=== PATIENT | female | born 1970 | race African-American/Black ===

== ENCOUNTER 2017-05-07 11:35 | Emergency (ER) | payer SELFPAY ==
[2017-05-07] MEDS ORDERED: Ondansetron HCl/PF 4 MG/2 ML Vial ONE (12:06)
[2017-05-07] MEDS ORDERED: Pantoprazole 40 MG VIAL ONE (12:06)
[2017-05-07] MEDS ORDERED: Ketorolac Tromethamine 30 MG/ML VIAL ONE (12:06)
--- NOTE | 2017-05-07 12:15 | RAD ---
PORTABLE CHEST 1 VIEW: Date: 05/07/17 Time: 1213 hours HISTORY: Dizziness, nausea, vomiting, and right upper quadrant pain. FINDINGS: The heart size is normal. There is elevation of the right hemidiaphragm. No focal areas of consolida tion, pneumothorax, or pleural effusions are seen. IMPRESSION: No acute process. POS: [facility]
[2017-05-07 12:27] LABS: Bilirubin Small (Negative); Blood, Urine Large (Negative); Glucose, Urine (Dipstick) Negative (Negative); Ketone, Urine Negative (Negative); Nitrite Negative (Negative); Protein, Urine (Dipstick) 100 mg/dL (Neg-Trace)
[2017-05-07 12:39] LABS: #Basophils 0.1 thou/uL (0.0-0.2); #Eosinphils 0.1 thou/uL (0.0-0.7); #Lymphocytes 1.6 thou/uL (1.20-3.40); #Monocytes 0.6 thou/uL (0.11-0.59); #Neutrophils 4.1 thou/uL (1.40-6.50); %Basophils 1.8 % (0.0-1.0); %Eosinophils 1.6 % (0.0-10.0); %Lymphocytes 23.7 % (21.0-51.0); %Monocytes 9.8 % (0.0-10.0); Hematocrit 43.2 % (36.0-47.0); Mean Platelet Volume 6.8 fL (7.4-10.4); Red Blood Cell (RBC) Count 4.71 mill/uL (4.20-5.40); White Blood Cell (WBC) Count 6.5 thou/uL (4.8-10.8)
[2017-05-07 12:41] LABS: Bacteria/HPF 1+ HPF (None Seen); RBC/HPF GREATER THAN 50-TNTC HPF (0-3)
[2017-05-07 12:44] LABS: ALT (SGPT) 53 U/L (8-55); AST (SGOT) 85 U/L (5-34); Alkaline Phosphatase 69 U/L (40-150); Anion Gap 14 mmol/L (10-20); BUN (Urea Nitrogen) 5 mg/dL (7.0-18.7); Bilirubin, Total 0.8 mg/dL (0.2-1.2); CK (CPK) 159 U/L (29-168); Calc. Creatinine Clearance 0 mL/min (70-130); Calcium 9.3 mg/dL (7.8-10.44); Carbon Dioxide 25 mmol/L (22-29); Chloride 101 mmol/L (98-107); Estimated GFR-MDRD Greater than 90; Lipase 55 U/L (8-78); Protein, Total 7.7 g/dL (6.0-8.3); Troponin I Less than 0.010 ng/mL (< 0.028)
--- NOTE | 2017-05-07 12:51 | ULT ---
RIGHT UPPER QUADRANT ULTRASOUND: Date: 05/07/17 HISTORY: Right upper quadrant pain. FINDINGS: The liver demonstrates increased echogenicity consistent with fatty infiltration without focal mass or intrahepatic ductal dilatation. No shadowing gallstones, gallbladder wall thickening, or perichol ecystic fluid is seen. The common duct measures 3.0 mm in diameter. The right kidney is normal. The pancreas is suboptimally visualized due to overlying bowel gas. No free fluid is seen in Morison's p ouch. IMPRESSION: 1. Fatty liver. 2. No evidence of cholelithiasis. POS: [facility]
== END 2017-05-07 13:00 | disposition home or self-care (01) ==
LOC: SCSER 11:35
DX: R10.11 Right upper quadrant pain (principal); I10 Essential (primary) hypertension; F32.9 Major depressive disorder, single episode, unspecified; F17.210 Nicotine dependence, cigarettes, uncomplicated
CPT/HCPCS: 71010; 76705; 81015; 81025; 82550; 82553; 83690; 84484; 93005; 96374; 96375; C9113; J1885; J2405